=== PATIENT | male | born 1985 | race Caucasian/White ===

== ENCOUNTER 2018-06-20 19:01 | Emergency (ER) | payer OTHER ==
[~2018-06-20] VITALS: Ht 182.9 cm; Wt 79.4 kg
[~2018-06-20 19:01] MED LIST: CEFDINIR300 MG PO; NOHOMEMEDICATIONS
[2018-06-20] MEDS ORDERED: AMOXICILLIN 50500 MG ×2 (19:12→19:13)
[2018-06-20 19:38] LABS: ABSOLUTE BASOPHILS 0.1 thou/uL (0.0-0.2); ABSOLUTE MONOCYTES 1.7 thou/uL (0.0-1.2); ABSOLUTE NEUTROPHILS 12.6 thou/uL (1.6-8.1); BASOPHILS 0.4 %; EOSINOPHILS 0.3 %; HEMATOCRIT 43.3 % (42.0-52.0); HEMOGLOBIN 15.1 gm/dL (14.0-18.0); LYMPHOCYTES 12.2 %; MCH 29.6 pg (26.0-34.0); MCV 84.5 fL (80.0-100.0); MONOCYTES 10.2 %; MPV 8.6 fl. (7.2-11.1); NUCLEATED RBCS 0 /100WBC; PLATELET COUNT* 288 thou/uL (150-400); POLYS 76.9 %; RBC 5.12 mil/uL (4.50-6.00); WBC 16.5 thou/uL (4.0-11.0)
[2018-06-20 20:04] LABS: CALCIUM 8.7 mg/dL (8.5-10.1); POTASSIUM 3.2 mmol/L (3.5-5.1)
[2018-06-20 20:09] LABS: ALBUMIN 3.6 g/dL (3.4-5.0); TOTAL BILIRUBIN 1.5 mg/dL (<0.1-1.0); TOTAL PROTEIN 8.3 g/dL (6.4-8.2)
[2018-06-20 22:34] VITALS: BP 132/76
== END 2018-06-20 22:36 | disposition short-term general hospital (02) ==
LOC: M.ERS 19:01
PROVIDERS: Nurse Practitioner Psychiatric/Mental Health
DX: K12.2 Cellulitis and abscess of mouth (principal); E87.6 Hypokalemia; K51.90 Ulcerative colitis, unspecified, without complications

== ENCOUNTER 2021-04-27 19:24 | Emergency (ER) | payer OTHER ==
[~2021-04-27] VITALS: Ht 182.9 cm; Wt 86.2 kg
[~2021-04-27 19:24] MED LIST changes: +AMOXICILLIN 50500 MG
[2021-04-27] MEDS ORDERED: CEPHALEXIN500 MG PO (20:35)
[2021-04-27 21:00] VITALS: BP 138/74
== END 2021-04-27 21:00 | disposition home or self-care (01) ==
LOC: M.ERS 19:24
DX: S30.861A Insect bite (nonvenomous) of abdominal wall, initial encounter (principal); R21 Rash and other nonspecific skin eruption; W57.XXXA Bitten or stung by nonvenomous insect and other nonvenomous arthropods, initial encounter; Y93.89 Activity, other specified; Y92.89 Other specified places as the place of occurrence of the external cause; Y99.9 Unspecified external cause status